=== PATIENT | male | born 1935 | race Caucasian/White ===

== ENCOUNTER 2022-01-15 08:10 | Inpatient (IN) | payer OTHER ==
[~2022-01-15] VITALS: Ht 180.3 cm; Wt 94.1 kg
[2022-01-15 10:33] LABS: Basophils # (auto) 0 10 ^3/uL (0-0.2); Basophils % (auto) 0.3 % (0.0-2.0); Eosinophils # (auto) 0 10 ^3/uL (0-0.8); Eosinophils % (auto) 0.3 % (0.0-7.0); Hematocrit 40.8 % (41.0-53.0); Hemoglobin 13.9 g/dL (13.5-17.5); Lymphocytes # (auto) 0.8 10 ^3/uL (0.4-5.4); Lymphocytes % (auto) 6.2 % (10.0-50.0); Mean Corpuscular Hemoglobin 32.2 pg (28.0-32.0); Mean Corpuscular Hgb Conc. 34.1 g/dL (32.0-36.0); Mean Corpuscular Volume 94.6 fL (80.0-100.0); Monocytes # (auto) 0.7 10 ^3/uL (0-1.3); Monocytes % (auto) 5.5 % (0.0-12.0); Neutrophils # (auto) 11.2 10 ^3/uL (1.6-8.6); Neutrophils % (auto) 87.7 % (37.0-80.0); Red Blood Cells 4.31 10^6/uL (4.5-5.90); Red Cell Distribution Width 14.3 % (11.8-14.3); White Blood Cell 12.8 10^3/uL (4.4-10.8)
[2022-01-15 10:52] LABS: INR 1.04 (0.9-1.15); Partial Thromboplastin Time 23.4 sec (24.6-33.4)
[2022-01-15 10:53] LABS: Albumin 3.3 g/dL (3.4-5.0); BUN/Creatinine Ratio 19.4; Calcium 8.9 mg/dL (8.5-10.1); Potassium 3.8 mmol/L (3.5-5.1)
[2022-01-15 10:56] LABS: Bilirubin, Total 2.3 mg/dL (0.2-1.0); Total Protein 5.5 g/dL (6.4-8.2)
[2022-01-15] MEDS ORDERED: MORPHINE SULFATE INJ 2 MG/ml SYRG IV ONE (11:30)
[2022-01-15] MEDS ORDERED: ONDANSETRON HCL 4 MG/2 ML VIAL IV ONE (11:30)
[2022-01-15 15:03] LABS: Urine Bacteria FEW /hpf (None Seen); Urine Blood Negative /uL (Negative); Urine Mucus FEW (None Seen); Urine WBC 2 /hpf (0 - 3)
[2022-01-15] MEDS ORDERED: DOCUSATE SOD 100 MG CAP PO PRN (22:15)
[2022-01-15] MEDS ORDERED: MORPHINE SULFATE INJ 2 MG/ml SYRG IV PRN (22:15)
[2022-01-15] MEDS ORDERED: cefTRIAXone 1GM/50ML D5W 50 ML IV ONE (22:15)
[2022-01-15] MEDS ORDERED: NITROGLYCERIN 0.4 MG SL TAB SL PRN (22:15)
[2022-01-15] MEDS ORDERED: TEMAZEPAM 15 MG CAP PO PRN (22:15)
[2022-01-15] MEDS ORDERED: ALBUMIN 25% 100 ML IV ONE (22:15)
[2022-01-15] MEDS ORDERED: HYDROcodone-ACET 5/325MG TAB PO PRN (22:15)
[2022-01-16] VITALS (8 sets, daily range): BP systolic 101–124; BP diastolic 62–81
[2022-01-16] MEDS ORDERED: MORPHINE SULFATE INJ 2 MG/ml SYRG IV ONE (00:15)
[2022-01-16] MEDS: ONDANSETRON HCL 4 MG/2 ML VIAL IV PRN (02:29)
[2022-01-16] MEDS: MORPHINE SULFATE INJ 2 MG/ml SYRG IV PRN ×2 (04:01→09:30)
[2022-01-16 05:14] LABS: Basophils # (auto) 0 10 ^3/uL (0-0.2); Basophils % (auto) 0.2 % (0.0-2.0); Eosinophils # (auto) 0 10 ^3/uL (0-0.8); Hematocrit 34.7 % (41.0-53.0); Hemoglobin 12.1 g/dL (13.5-17.5); Lymphocytes # (auto) 0.8 10 ^3/uL (0.4-5.4); Lymphocytes % (auto) 7.8 % (10.0-50.0); Mean Corpuscular Hemoglobin 32.8 pg (28.0-32.0); Mean Corpuscular Volume 93.9 fL (80.0-100.0); Monocytes # (auto) 0.9 10 ^3/uL (0-1.3); Monocytes % (auto) 8.6 % (0.0-12.0); Neutrophils # (auto) 8.8 10 ^3/uL (1.6-8.6); Neutrophils % (auto) 83.4 % (37.0-80.0); Red Cell Distribution Width 14.2 % (11.8-14.3); White Blood Cell 10.6 10^3/uL (4.4-10.8)
[2022-01-16 05:23] LABS: Albumin 2.9 g/dL (3.4-5.0); BUN/Creatinine Ratio 22.3; Calcium 8.5 mg/dL (8.5-10.1); Potassium 4.4 mmol/L (3.5-5.1)
[2022-01-16 05:26] LABS: Bilirubin, Total 2.4 mg/dL (0.2-1.0); Total Protein 4.9 g/dL (6.4-8.2)
[2022-01-16] MEDS: LEVOTHYROXINE SODIUM 25 MCG TAB PO SCH (06:51)
[2022-01-16] MEDS: cefTRIAXone 1GM/50ML D5W 50 ML IV SCH (09:30)
[2022-01-16] MEDS ORDERED: TERA10CA PO (09:45)
[2022-01-16] MEDS ORDERED: ALEN70TA74 PO (09:45)
[2022-01-16] MEDS ORDERED: LEVO25TA49 PO (09:45)
[2022-01-16] MEDS ORDERED: SIMV80TA73 PO (09:45)
[2022-01-16] MEDS: ZINC SULFATE 220mg CAP or TAB PO SCH (10:56)
[2022-01-16] MEDS: MULTIPLE VITAMIN TAB PO SCH (10:56)
[2022-01-16] MEDS: ASCORBIC ACID 500 MG TAB PO SCH ×2 (10:57→22:16)
[2022-01-16] MEDS: ENOXAPARIN SOD 40 MG/0.4 ML SYRINGE SC SCH (11:01)
[2022-01-17] MEDS: MORPHINE SULFATE INJ 2 MG/ml SYRG IV PRN (01:53)
[2022-01-17 05:00] VITALS: BP 128/73
[2022-01-17 05:25] LABS: Basophils # (auto) 0 10 ^3/uL (0-0.2); Basophils % (auto) 0.4 % (0.0-2.0); Eosinophils # (auto) 0 10 ^3/uL (0-0.8); Eosinophils % (auto) 0.3 % (0.0-7.0); Hematocrit 28.6 % (41.0-53.0); Hemoglobin 9.8 g/dL (13.5-17.5); Lymphocytes # (auto) 0.7 10 ^3/uL (0.4-5.4); Lymphocytes % (auto) 7.4 % (10.0-50.0); Mean Corpuscular Hemoglobin 32.4 pg (28.0-32.0); Mean Corpuscular Hgb Conc. 34.2 g/dL (32.0-36.0); Mean Corpuscular Volume 94.6 fL (80.0-100.0); Monocytes # (auto) 0.9 10 ^3/uL (0-1.3); Monocytes % (auto) 9.1 % (0.0-12.0); Neutrophils # (auto) 8.1 10 ^3/uL (1.6-8.6); Neutrophils % (auto) 82.8 % (37.0-80.0); Red Blood Cells 3.02 10^6/uL (4.5-5.90); Red Cell Distribution Width 14.3 % (11.8-14.3); White Blood Cell 9.8 10^3/uL (4.4-10.8)
[2022-01-17 05:50] LABS: Calcium 8.5 mg/dL (8.5-10.1); Magnesium 2.2 mg/dL (1.6-2.6); Potassium 4.2 mmol/L (3.5-5.1)
[2022-01-17 05:55] LABS: BUN/Creatinine Ratio 35.6
[2022-01-17] MEDS ORDERED: BUPIVACAINE W/ EPINEPH 0.25% INJ 50ML MDV ONE (06:25)
[2022-01-17] MEDS ORDERED: ceFAZolin 1GM/50ML 100 ML IV ONE (06:25)
[2022-01-17] MEDS ORDERED: MIDAZOLAM HCL 2MG/2ML 2ml VIAL (1mg/ml) ONE (06:30)
[2022-01-17] MEDS ORDERED: fentaNYL CITRATE 100 MCG/2 ML VL ONE (06:30)
[2022-01-17] MEDS ORDERED: ePHEDrine SULFATE 50 MG/ML AMP ONE (06:32)
[2022-01-17] MEDS ORDERED: MORPHINE SULF PF 5 MG/10 ML VIAL ONE (06:33)
[2022-01-17] MEDS: LEVOTHYROXINE SODIUM 25 MCG TAB PO SCH (07:00)
[2022-01-17 09:00] VITALS: BP 101/69
[2022-01-17] MEDS: ZINC SULFATE 220mg CAP or TAB PO SCH (11:20)
[2022-01-17] MEDS: ASCORBIC ACID 500 MG TAB PO SCH ×2 (11:20→21:56)
[2022-01-17] MEDS: cefTRIAXone 1GM/50ML D5W 50 ML IV SCH (11:20)
[2022-01-17] MEDS: MULTIPLE VITAMIN TAB PO SCH (11:20)
[2022-01-17] MEDS: ENOXAPARIN SOD 40 MG/0.4 ML SYRINGE SC SCH (11:21)
[2022-01-17 12:44] VITALS: BP 135/78
[2022-01-17] MEDS: ceFAZolin 2 GM in D5W 5% 100 ML IV SCH ×2 (14:00→22:00)
[2022-01-17 17:00] VITALS: BP 124/78
[2022-01-17] MEDS: ONDANSETRON HCL 4 MG/2 ML VIAL IV PRN (17:40)
[2022-01-17 22:08] VITALS: BP 136/66
[2022-01-18 05:01] VITALS: BP 130/78
[2022-01-18 06:18] LABS: Potassium 4.7 mmol/L (3.5-5.1)
[2022-01-18 06:23] LABS: BUN/Creatinine Ratio 38.5; Calcium 8.6 mg/dL (8.5-10.1)
[2022-01-18] MEDS: LEVOTHYROXINE SODIUM 25 MCG TAB PO SCH (06:28)
[2022-01-18 06:30] LABS: Basophils # (auto) 0 10 ^3/uL (0-0.2); Basophils % (auto) 0.2 % (0.0-2.0); Eosinophils # (auto) 0 10 ^3/uL (0-0.8); Hemoglobin 8.9 g/dL (13.5-17.5); Lymphocytes # (auto) 0.7 10 ^3/uL (0.4-5.4); Lymphocytes % (auto) 6.7 % (10.0-50.0); Mean Corpuscular Hemoglobin 32.6 pg (28.0-32.0); Mean Corpuscular Hgb Conc. 34.1 g/dL (32.0-36.0); Mean Corpuscular Volume 95.5 fL (80.0-100.0); Monocytes # (auto) 1.3 10 ^3/uL (0-1.3); Monocytes % (auto) 11.9 % (0.0-12.0); Neutrophils # (auto) 9.1 10 ^3/uL (1.6-8.6); Neutrophils % (auto) 81.2 % (37.0-80.0); Red Blood Cells 2.73 10^6/uL (4.5-5.90); Red Cell Distribution Width 14.2 % (11.8-14.3); White Blood Cell 11.2 10^3/uL (4.4-10.8)
[2022-01-18] MEDS: ceFAZolin 2 GM in D5W 5% 100 ML IV SCH (06:37)
[2022-01-18] MEDS ORDERED: LACTULOSE 20Gm/30ML SOLN PO ONE (09:30)
[2022-01-18] MEDS: MULTIPLE VITAMIN TAB PO SCH (10:00)
[2022-01-18] MEDS: ZINC SULFATE 220mg CAP or TAB PO SCH (10:00)
[2022-01-18] MEDS: cefTRIAXone 1GM/50ML D5W 50 ML IV SCH (10:44)
[2022-01-18] MEDS: ENOXAPARIN SOD 40 MG/0.4 ML SYRINGE SC SCH (10:54)
[2022-01-18] MEDS: ASCORBIC ACID 500 MG TAB PO SCH ×2 (10:54→22:15)
[2022-01-18] MEDS: ACETAMINOPHEN 325 MG TAB PO PRN ×2 (13:29→18:50)
[2022-01-18 15:22] LABS: Urine Bacteria NONE SEEN /hpf (None Seen); Urine Blood TRACE /uL (Negative); Urine Mucus FEW (None Seen); Urine Specific Gravity 1.027 (1.001-1.035); Urine WBC 6 /hpf (0 - 3)
[2022-01-18 17:00] VITALS: BP 108/68
[2022-01-18] MEDS ORDERED: SOD CHL 0.45% 1,000 ML IV SCH ×2 (18:15)
[2022-01-18] MEDS: SOD CHL 0.45% 1,000 ML IV SCH (18:45)
[2022-01-18] MEDS: SODIUM CHLORIDE 0.9% 1,000 ML IV SCH (21:30)
[2022-01-19 06:51] LABS: Calcium 8.3 mg/dL (8.5-10.1); Potassium 4.3 mmol/L (3.5-5.1)
[2022-01-19 06:53] LABS: BUN/Creatinine Ratio 33.3
[2022-01-19 07:02] LABS: Basophils # (auto) 0 10 ^3/uL (0-0.2); Basophils % (auto) 0.2 % (0.0-2.0); Eosinophils # (auto) 0 10 ^3/uL (0-0.8); Eosinophils % (auto) 0.2 % (0.0-7.0); Hematocrit 25.5 % (41.0-53.0); Hemoglobin 8.9 g/dL (13.5-17.5); Lymphocytes # (auto) 0.5 10 ^3/uL (0.4-5.4); Lymphocytes % (auto) 4.4 % (10.0-50.0); Mean Corpuscular Hemoglobin 32.9 pg (28.0-32.0); Mean Corpuscular Hgb Conc. 34.8 g/dL (32.0-36.0); Mean Corpuscular Volume 94.5 fL (80.0-100.0); Monocytes # (auto) 0.9 10 ^3/uL (0-1.3); Monocytes % (auto) 7.4 % (0.0-12.0); Neutrophils # (auto) 10.1 10 ^3/uL (1.6-8.6); Neutrophils % (auto) 87.8 % (37.0-80.0); Red Cell Distribution Width 13.9 % (11.8-14.3); White Blood Cell 11.5 10^3/uL (4.4-10.8)
[2022-01-19] MEDS: LEVOTHYROXINE SODIUM 25 MCG TAB PO SCH (07:07)
[2022-01-19 08:00] VITALS: BP 115/65
[2022-01-19] MEDS ORDERED: LACTULOSE 20Gm/30ML SOLN PO PRN (09:00)
[2022-01-19] MEDS: ENOXAPARIN SOD 40 MG/0.4 ML SYRINGE SC SCH (09:40)
[2022-01-19] MEDS: ASCORBIC ACID 500 MG TAB PO SCH ×2 (09:40→22:00)
[2022-01-19] MEDS: cefTRIAXone 1GM/50ML D5W 50 ML IV SCH (09:40)
[2022-01-19] MEDS: MULTIPLE VITAMIN TAB PO SCH (09:40)
[2022-01-19] MEDS: ZINC SULFATE 220mg CAP or TAB PO SCH (09:40)
[2022-01-19] MEDS ORDERED: CALCIUM CARB 500 MG CHEW TAB PO PRN (10:45)
[2022-01-19] MEDS ORDERED: PANTOPRAZOLE 40 MG TAB PO ONE (10:45)
[2022-01-19] MEDS ORDERED: SODIUM CHLORIDE 0.9% 500 ML IV ONE ×2 (10:45→16:00)
[2022-01-19 11:00] VITALS: BP 110/63
[2022-01-19] MEDS: chlorproMAZINE HCL 25 MG TAB PO PRN ×2 (11:13→17:27)
[2022-01-19 12:00] VITALS: BP 105/62
[2022-01-19] MEDS: SODIUM CHLORIDE 0.9% 1,000 ML IV SCH ×3 (12:00→22:57)
[2022-01-19 14:00] VITALS: BP 116/79
[2022-01-19 15:00] VITALS: BP 119/69
[2022-01-19 16:00] VITALS: BP 135/74
[2022-01-19] MEDS ORDERED: PANTOPRAZOLE 40 MG/10 ML VIAL INJ IV ONE (16:00)
[2022-01-19 17:09] LABS: Basophils # (auto) 0 10 ^3/uL (0-0.2); Basophils % (auto) 0.2 % (0.0-2.0); Eosinophils # (auto) 0 10 ^3/uL (0-0.8); Eosinophils % (auto) 0.1 % (0.0-7.0); Hematocrit 27.7 % (41.0-53.0); Hemoglobin 9.5 g/dL (13.5-17.5); Lymphocytes # (auto) 0.6 10 ^3/uL (0.4-5.4); Lymphocytes % (auto) 5.1 % (10.0-50.0); Mean Corpuscular Hemoglobin 32.3 pg (28.0-32.0); Mean Corpuscular Hgb Conc. 34.4 g/dL (32.0-36.0); Mean Corpuscular Volume 93.9 fL (80.0-100.0); Monocytes # (auto) 1.3 10 ^3/uL (0-1.3); Monocytes % (auto) 10.9 % (0.0-12.0); Neutrophils # (auto) 9.8 10 ^3/uL (1.6-8.6); Neutrophils % (auto) 83.7 % (37.0-80.0); Nucleated Red Blood Cells % 0.1 %; Red Blood Cells 2.95 10^6/uL (4.5-5.90); Red Cell Distribution Width 13.9 % (11.8-14.3); White Blood Cell 11.7 10^3/uL (4.4-10.8)
[2022-01-19 17:26] LABS: BUN/Creatinine Ratio 39.7; Calcium 8.6 mg/dL (8.5-10.1); Potassium 4.4 mmol/L (3.5-5.1)
[2022-01-19] MEDS: ACETAMINOPHEN 325 MG TAB PO PRN (17:28)
[2022-01-19] MEDS: SOD CHL 0.45% 1,000 ML IV SCH (18:45)
[2022-01-20 05:32] LABS: Basophils # (auto) 0 10 ^3/uL (0-0.2); Basophils % (auto) 0.1 % (0.0-2.0); Eosinophils # (auto) 0 10 ^3/uL (0-0.8); Eosinophils % (auto) 0.5 % (0.0-7.0); Hematocrit 25.2 % (41.0-53.0); Hemoglobin 8.8 g/dL (13.5-17.5); Lymphocytes # (auto) 0.7 10 ^3/uL (0.4-5.4); Lymphocytes % (auto) 7.4 % (10.0-50.0); Mean Corpuscular Hemoglobin 32.9 pg (28.0-32.0); Mean Corpuscular Hgb Conc. 34.8 g/dL (32.0-36.0); Mean Corpuscular Volume 94.5 fL (80.0-100.0); Neutrophils # (auto) 7.6 10 ^3/uL (1.6-8.6); Nucleated Red Blood Cells % 0.2 %; Red Blood Cells 2.67 10^6/uL (4.5-5.90); Red Cell Distribution Width 14.1 % (11.8-14.3); White Blood Cell 9.4 10^3/uL (4.4-10.8)
[2022-01-20 05:37] LABS: BUN/Creatinine Ratio 45.8; Calcium 8.3 mg/dL (8.5-10.1); Magnesium 2.3 mg/dL (1.6-2.6); Potassium 4.2 mmol/L (3.5-5.1)
[2022-01-20] MEDS: LEVOTHYROXINE SODIUM 25 MCG TAB PO SCH (07:00)
[2022-01-20 08:00] VITALS: BP 130/67
[2022-01-20 08:27] VITALS: BP 130/67
[2022-01-20] MEDS ORDERED: SODIUM CHLORIDE 0.9% 1,000 ML IV ONE (09:45)
[2022-01-20] MEDS: MULTIPLE VITAMIN TAB PO SCH (10:00)
[2022-01-20] MEDS: ZINC SULFATE 220mg CAP or TAB PO SCH (10:00)
[2022-01-20] MEDS ORDERED: PANTOPRAZOLE 40 MG TAB PO SCH (10:00)
[2022-01-20] MEDS: ASCORBIC ACID 500 MG TAB PO SCH (10:00)
[2022-01-20] MEDS ORDERED: DAKINS QUARTER STR 0.125% (NaHypochlorite) 473 ML TOPICAL SOL TOP SCH (10:00)
[2022-01-20] MEDS: cefTRIAXone 1GM/50ML D5W 50 ML IV SCH (11:07)
[2022-01-20] MEDS: PANTOPRAZOLE 40 MG/10 ML VIAL INJ IV SCH (11:07)
[2022-01-20] MEDS: ENOXAPARIN SOD 40 MG/0.4 ML SYRINGE SC SCH (11:07)
[2022-01-20] MEDS: SODIUM CHLORIDE 0.9% 1,000 ML IV SCH (12:05)
[2022-01-20 13:38] LABS: Free T4 (Free Thyroxine) 1.06 ng/dL (0.89-1.76)
[2022-01-20 13:39] LABS: Folate (Folic Acid) 7.67 ng/mL (5.38-24)
[2022-01-20 14:22] VITALS: BP 125/65
[2022-01-20 22:00] VITALS: BP 118/63
[2022-01-21] MEDS: ASCORBIC ACID 500 MG TAB PO SCH ×3 (00:15→23:02)
[2022-01-21] MEDS: SODIUM CHLORIDE 0.9% 1,000 ML IV SCH ×4 (00:20→23:02)
[2022-01-21 05:00] VITALS: BP 124/66
[2022-01-21 06:11] LABS: Basophils # (auto) 0 10 ^3/uL (0-0.2); Basophils % (auto) 0.1 % (0.0-2.0); Eosinophils # (auto) 0.1 10 ^3/uL (0-0.8); Eosinophils % (auto) 0.9 % (0.0-7.0); Hematocrit 25.7 % (41.0-53.0); Hemoglobin 8.8 g/dL (13.5-17.5); Lymphocytes # (auto) 0.8 10 ^3/uL (0.4-5.4); Lymphocytes % (auto) 4.7 % (10.0-50.0); Mean Corpuscular Hemoglobin 32.8 pg (28.0-32.0); Mean Corpuscular Hgb Conc. 34.4 g/dL (32.0-36.0); Mean Corpuscular Volume 95.6 fL (80.0-100.0); Monocytes # (auto) 1.2 10 ^3/uL (0-1.3); Monocytes % (auto) 7.4 % (0.0-12.0); Neutrophils # (auto) 14.4 10 ^3/uL (1.6-8.6); Neutrophils % (auto) 86.9 % (37.0-80.0); Nucleated Red Blood Cells % 0.5 %; Red Blood Cells 2.69 10^6/uL (4.5-5.90); Red Cell Distribution Width 14.3 % (11.8-14.3); White Blood Cell 16.5 10^3/uL (4.4-10.8)
[2022-01-21 06:17] LABS: BUN/Creatinine Ratio 43.3; Calcium 8.2 mg/dL (8.5-10.1); Magnesium 2.3 mg/dL (1.6-2.6); Potassium 3.9 mmol/L (3.5-5.1)
[2022-01-21] MEDS: LEVOTHYROXINE SODIUM 25 MCG TAB PO SCH (06:53)
[2022-01-21 08:46] VITALS: BP 117/67
[2022-01-21] MEDS: MULTIPLE VITAMIN TAB PO SCH (08:55)
[2022-01-21] MEDS: PANTOPRAZOLE 40 MG/10 ML VIAL INJ IV SCH (08:55)
[2022-01-21] MEDS: ZINC SULFATE 220mg CAP or TAB PO SCH (08:55)
[2022-01-21] MEDS: ENOXAPARIN SOD 40 MG/0.4 ML SYRINGE SC SCH (08:56)
[2022-01-21] MEDS: cefTRIAXone 1GM/50ML D5W 50 ML IV SCH (08:56)
[2022-01-21] MEDS: VANCOMYCIN HCL 125MG/5ML ORAL SOL PO SCH ×3 (16:41→23:02)
[2022-01-21 17:00] VITALS: BP 122/67
[2022-01-21 22:00] VITALS: BP 163/58
[2022-01-22 05:00] VITALS: BP 121/66
[2022-01-22 06:30] LABS: Mean Corpuscular Hemoglobin 33.1 pg (28.0-32.0); Mean Corpuscular Hgb Conc. 34.8 g/dL (32.0-36.0); Red Blood Cells 2.42 10^6/uL (4.5-5.90); Red Cell Distribution Width 14.2 % (11.8-14.3)
[2022-01-22 06:31] LABS: BUN/Creatinine Ratio 34.2; Calcium 7.7 mg/dL (8.5-10.1); Potassium 3.8 mmol/L (3.5-5.1)
[2022-01-22] MEDS: LEVOTHYROXINE SODIUM 25 MCG TAB PO SCH (06:34)
[2022-01-22] MEDS: VANCOMYCIN HCL 125MG/5ML ORAL SOL PO SCH ×4 (06:34→22:44)
[2022-01-22 06:58] LABS: Basophils % (manual) 0 (0.0-2.0); Blast Cells 0; Metamyelocytes % 0; Promyelocytes % 0; Reactive Lymphocytes 0
[2022-01-22 09:00] VITALS: BP 113/68
[2022-01-22] MEDS: MULTIPLE VITAMIN TAB PO SCH (09:23)
[2022-01-22] MEDS: ENOXAPARIN SOD 40 MG/0.4 ML SYRINGE SC SCH (09:23)
[2022-01-22] MEDS: PANTOPRAZOLE 40 MG/10 ML VIAL INJ IV SCH (09:23)
[2022-01-22] MEDS: ASCORBIC ACID 500 MG TAB PO SCH ×3 (09:23→23:30)
[2022-01-22] MEDS: ZINC SULFATE 220mg CAP or TAB PO SCH (09:23)
[2022-01-22 10:08] LABS: Band Neutrophils % (manual) 37; Eosinophils % (manual) 4 (0-7); Lymphocytes % (manual) 3 (10.0-50.0); Monocytes % (manual) 4 (0-12); Myelocytes % 1
[2022-01-22] MEDS: ACETAMINOPHEN 325 MG TAB PO PRN ×3 (12:11→23:30)
[2022-01-22 13:00] VITALS: BP 114/63
[2022-01-22] MEDS: SODIUM CHLORIDE 0.9% 1,000 ML IV SCH (14:26)
[2022-01-22] MEDS: metroNIDAZOLE 500MG/100ML 100 ML IV SCH ×2 (14:26→22:43)
[2022-01-22 17:00] VITALS: BP 116/62
[2022-01-22] MEDS ORDERED: HALOPERIDOL LACTATE 5 MG/ML INJ VIAL IM PRN (20:30)
[2022-01-22 22:00] VITALS: BP 125/56
[2022-01-22] MEDS: QUEtiapine FUMARATE 25 MG TAB PO SCH (22:00)
[2022-01-23 04:56] VITALS: BP 137/66
[2022-01-23] MEDS: VANCOMYCIN HCL 125MG/5ML ORAL SOL PO SCH (06:00)
[2022-01-23] MEDS: metroNIDAZOLE 500MG/100ML 100 ML IV SCH ×3 (06:00→22:32)
[2022-01-23 06:05] LABS: Calcium 7.7 mg/dL (8.5-10.1); Potassium 3.8 mmol/L (3.5-5.1)
[2022-01-23 06:06] LABS: Hemoglobin 8.4 g/dL (13.5-17.5)
[2022-01-23 06:09] LABS: BUN/Creatinine Ratio 35.5; Magnesium 2.2 mg/dL (1.6-2.6)
[2022-01-23 06:10] LABS: Hematocrit 24.4 % (41.0-53.0); Mean Corpuscular Hemoglobin 32.8 pg (28.0-32.0); Mean Corpuscular Hgb Conc. 34.2 g/dL (32.0-36.0); Mean Corpuscular Volume 95.8 fL (80.0-100.0); Red Blood Cells 2.55 10^6/uL (4.5-5.90); Red Cell Distribution Width 14.8 % (11.8-14.3); White Blood Cell 26.1 10^3/uL (4.4-10.8)
[2022-01-23] MEDS: SODIUM CHLORIDE 0.9% 1,000 ML IV SCH ×2 (06:15→16:35)
[2022-01-23] MEDS: LEVOTHYROXINE SODIUM 25 MCG TAB PO SCH (06:20)
[2022-01-23 06:30] LABS: Basophils % (manual) 0 (0.0-2.0); Blast Cells 0; Eosinophils % (manual) 0 (0-7); Metamyelocytes % 0; Myelocytes % 0; Promyelocytes % 0; Reactive Lymphocytes 0
[2022-01-23 08:36] LABS: Band Neutrophils % (manual) 23; Lymphocytes % (manual) 5 (10.0-50.0); Monocytes % (manual) 3 (0-12)
[2022-01-23 09:00] VITALS: BP 115/65
[2022-01-23] MEDS: PANTOPRAZOLE 40 MG/10 ML VIAL INJ IV SCH (09:41)
[2022-01-23] MEDS: ZINC SULFATE 220mg CAP or TAB PO SCH (11:28)
[2022-01-23] MEDS: ACETAMINOPHEN 325 MG TAB PO PRN (11:29)
[2022-01-23] MEDS: MULTIPLE VITAMIN TAB PO SCH (11:29)
[2022-01-23 12:00] VITALS: BP 97/51
[2022-01-23] MEDS ORDERED: VANCOMYCIN HCL 125MG/5ML ORAL SOL PO SCH (12:00)
[2022-01-23 16:50] VITALS: BP 109/54
[2022-01-23] MEDS: VANCOMYCIN 500MG RECTAL ENEMA IN 100ML/NS PR SCH ×2 (18:30→22:34)
[2022-01-23] MEDS: VANCOMYCIN HCL 500MG/5ML ORAL SOL PO SCH ×2 (18:30→22:32)
[2022-01-23 21:20] VITALS: BP 116/62
[2022-01-23] MEDS: QUEtiapine FUMARATE 25 MG TAB PO SCH (22:00)
[2022-01-23] MEDS: ASCORBIC ACID 500 MG TAB PO SCH (22:33)
[2022-01-24 03:22] VITALS: BP 104/65
[2022-01-24 05:20] LABS: Calcium 7.3 mg/dL (8.5-10.1); Magnesium 2.1 mg/dL (1.6-2.6)
[2022-01-24 05:23] LABS: BUN/Creatinine Ratio 36.2
[2022-01-24] MEDS: SODIUM CHLORIDE 0.9% 1,000 ML IV SCH (05:55)
[2022-01-24] MEDS: metroNIDAZOLE 500MG/100ML 100 ML IV SCH ×3 (06:59→21:48)
[2022-01-24] MEDS: VANCOMYCIN HCL 500MG/5ML ORAL SOL PO SCH ×4 (06:59→21:49)
[2022-01-24] MEDS: VANCOMYCIN 500MG RECTAL ENEMA IN 100ML/NS PR SCH ×4 (06:59→22:55)
[2022-01-24] MEDS: LEVOTHYROXINE SODIUM 25 MCG TAB PO SCH (07:00)
[2022-01-24 09:00] VITALS: BP 103/64
[2022-01-24 09:22] LABS: Hematocrit 26.3 % (41.0-53.0); Hemoglobin 8.7 g/dL (13.5-17.5); Mean Corpuscular Hemoglobin 31.7 pg (28.0-32.0); Mean Corpuscular Volume 96.3 fL (80.0-100.0); Red Blood Cells 2.73 10^6/uL (4.5-5.90); Red Cell Distribution Width 14.7 % (11.8-14.3)
[2022-01-24 09:37] LABS: White Blood Cell 39.6 10^3/uL (4.4-10.8)
[2022-01-24 09:40] LABS: Basophils % (manual) 0 (0.0-2.0); Blast Cells 0; Eosinophils % (manual) 0 (0-7); Myelocytes % 0; Promyelocytes % 0; Reactive Lymphocytes 0
[2022-01-24] MEDS: PANTOPRAZOLE 40 MG/10 ML VIAL INJ IV SCH (09:51)
[2022-01-24] MEDS: ASCORBIC ACID 500 MG TAB PO SCH ×2 (09:52→21:49)
[2022-01-24] MEDS: ZINC SULFATE 220mg CAP or TAB PO SCH (09:52)
[2022-01-24] MEDS: MULTIPLE VITAMIN TAB PO SCH (09:52)
[2022-01-24 10:17] LABS: Band Neutrophils % (manual) 12; Lymphocytes % (manual) 1 (10.0-50.0); Metamyelocytes % 1; Monocytes % (manual) 3 (0-12)
[2022-01-24 12:55] VITALS: BP 101/60
[2022-01-24] MEDS ORDERED: ENOXAPARIN SOD 80 MG/0.8ML SYRINGE SC ONE (13:45)
[2022-01-24] MEDS ORDERED: traMADol HCL 50 MG TAB PO PRN (14:15)
[2022-01-24 17:00] VITALS: BP 119/68
[2022-01-24] MEDS: NYSTATIN (MOUTH-THROAT) 500,000 UNITS/5 ML SUSP MT SCH ×2 (17:49→21:48)
[2022-01-24] MEDS: QUEtiapine FUMARATE 25 MG TAB PO SCH (21:50)
[2022-01-24 22:00] VITALS: BP 118/77
[2022-01-24] MEDS ORDERED: ENOXAPARIN SOD 80 MG/0.8ML SYRINGE SC SCH (22:00)
[2022-01-25 05:00] VITALS: BP 141/80
[2022-01-25] MEDS: NYSTATIN (MOUTH-THROAT) 500,000 UNITS/5 ML SUSP MT SCH (05:31)
[2022-01-25] MEDS: metroNIDAZOLE 500MG/100ML 100 ML IV SCH (05:31)
[2022-01-25] MEDS: VANCOMYCIN 500MG RECTAL ENEMA IN 100ML/NS PR SCH (05:32)
[2022-01-25] MEDS: VANCOMYCIN HCL 500MG/5ML ORAL SOL PO SCH (05:32)
[2022-01-25 06:12] LABS: Mean Corpuscular Hgb Conc. 33.5 g/dL (32.0-36.0)
[2022-01-25 06:16] LABS: Hematocrit 26.7 % (41.0-53.0); Mean Corpuscular Hemoglobin 31.8 pg (28.0-32.0); Red Blood Cells 2.81 10^6/uL (4.5-5.90); Red Cell Distribution Width 14.8 % (11.8-14.3)
[2022-01-25] MEDS: LEVOTHYROXINE SODIUM 25 MCG TAB PO SCH (06:22)
[2022-01-25 06:26] LABS: BUN/Creatinine Ratio 43.5; Calcium 7.4 mg/dL (8.5-10.1); Magnesium 2.2 mg/dL (1.6-2.6); Potassium 4.2 mmol/L (3.5-5.1)
[2022-01-25 06:36] LABS: White Blood Cell 41.4 10^3/uL (4.4-10.8)
[2022-01-25 06:37] LABS: Basophils % (manual) 0 (0.0-2.0); Blast Cells 0; Eosinophils % (manual) 0 (0-7); Metamyelocytes % 0; Promyelocytes % 0; Reactive Lymphocytes 0
[2022-01-25 08:29] LABS: Band Neutrophils % (manual) 37; Lymphocytes % (manual) 5 (10.0-50.0); Monocytes % (manual) 1 (0-12); Myelocytes % 2
== END 2022-01-25 07:00 | disposition short-term general hospital (02) | DRG 480 ==
LOC: EDBD 08:10 → ER 08:10 → OVERFLOW 22:16 → WEST WING 01-16 03:40 → TELE-WESTW 01-17 08:25
PROVIDERS: ADMIT Nurse Practitioner Family; ATTEND Internal Medicine Geriatric Medicine
PROC: BW1C1ZZ Fluoroscopy of Lower Extremity using Low Osmolar Contrast (ICD-10-PCS; 2022-01-17)
PROC: 0QS634Z Reposition Right Upper Femur with Internal Fixation Device, Percutaneous Approach (ICD-10-PCS; principal; 2022-01-17 06:48)
DX: S72.141A Displaced intertrochanteric fracture of right femur, initial encounter for closed fracture (principal); A41.4 Sepsis due to anaerobes; E43 Unspecified severe protein-calorie malnutrition; G93.41 Metabolic encephalopathy; M48.56XA Collapsed vertebra, not elsewhere classified, lumbar region, initial encounter for fracture; N17.9 Acute kidney failure, unspecified; N39.0 Urinary tract infection, site not specified; R71.0 Precipitous drop in hematocrit; A04.72 Enterocolitis due to Clostridium difficile, not specified as recurrent; F03.A2 Unspecified dementia, mild, with psychotic disturbance; K56.7 Ileus, unspecified; Z20.822 Contact with and (suspected) exposure to COVID-19; R73.09 Other abnormal glucose; E78.5 Hyperlipidemia, unspecified; G89.29 Other chronic pain; I10 Essential (primary) hypertension; K21.9 Gastro-esophageal reflux disease without esophagitis; K59.00 Constipation, unspecified; N40.0 Benign prostatic hyperplasia without lower urinary tract symptoms; F17.200 Nicotine dependence, unspecified, uncomplicated; W18.39XA Other fall on same level, initial encounter; Z68.24 Body mass index [BMI] 24.0-24.9, adult; Z82.49 Family history of ischemic heart disease and other diseases of the circulatory system; Z90.81 Acquired absence of spleen; Y93.89 Activity, other specified; Y99.8 Other external cause status; Y92.098 Other place in other non-institutional residence as the place of occurrence of the external cause
CPT/HCPCS: 36415; 70450; 71045; 72192; 73030; 73560; 74018; 76000; 80048; 80053; 80061; 81001; 82607; 82746; 83036; 83615; 83735; 84439; 84443; 84484; 85007; 85025; 85027; 85610; 85730; 86850; 86900; 86901; 87040; 87086; 87426; 87493; 93005; 93306; 93970; 95819; 96365; 96375; 97110; 97116; 97163; 97530; C9113; G0378; J0690; J0696; J2250; J2405; J3370; J3490; J7060; P9047; Q0161